=== PATIENT | female | born 1995 | race Hispanic/Latino ===

== ENCOUNTER 2017-12-08 22:54 | Inpatient (IN) | payer MEDICAID ==
[~2017-12-08] VITALS: Ht 152.4 cm; Wt 65.8 kg
[2017-12-08] MEDS ORDERED: EPHEDRINE SULFATE 50 MG/ML AMPULE IVP PRN (23:15)
[2017-12-08] MEDS ORDERED: PROMETHAZINE HCL 25 MG/ML 1ML AMPULE IM PRN (23:15)
[2017-12-08] MEDS ORDERED: MEPERIDINE-PF 50 MG/ML SYG SQ PRN (23:15)
[2017-12-08] MEDS ORDERED: LACTATED RINGERS 500 ML 500 ML IV PRN (23:15)
[2017-12-08] MEDS ORDERED: NALOXONE HCL 0.4 MG/1 ML ML IV PRN (23:15)
[2017-12-08 23:31] LABS: APPEARANCE,URINE Clear (CLEAR); BILIRUBIN,URINE Negative (NEGATIVE); COLOR,URINE Yellow (YELLOW); GLUCOSE, URINE (UA) Negative (NEGATIVE); KETONES,URINE Negative (NEGATIVE); LEUKOCYTE ESTERASE ,URINE Small (NEGATIVE); NITRATE,URINE Negative (NEGATIVE); OCCULT BLOOD,URINE Negative (NEGATIVE); PROTEIN,URINE Negative (NEGATIVE)
[2017-12-08] MEDS: LACTATED RINGERS 1000ML 1,000 ML IV PRN (23:34)
[2017-12-08 23:41] LABS: HEMATOCRIT 29.3 % (36-48); MEAN CORPUSCULAR HEMOGLOBIN 24.3 pg (27.0-33.0); MEAN CORPUSCULAR HGB CONC 32.4 g/dL (32.0-36.0); MEAN CORPUSCULAR VOLUME 74.9 fL (80-100); NUCLEATED RED BLOOD CELLS 0.1 % (0.0-0.19); PLATELET COUNT (AUTO) 304 K/uL (130-400); RED BLOOD CELL COUNT(AUTO) 3.92 MIL/uL (4.00-5.50); RED CELL DISTRIBUTION WIDTH 16.7 % (11.0-15.5); WHITE BLOOD COUNT (AUTO) 7.9 K/uL (4.8-10.8)
[2017-12-08 23:44] LABS: BACTERIA,URINE Rare /HPF (None Seen); RBC,URINE 0-1 /HPF (0-1); SQUAMOUS EPITHELIAL CELL,UR Moderate /LPF (0-2)
[2017-12-09] MEDS ORDERED: OXYTOCIN 10 USP UNITS/ML ONE ×2 (03:58→10:16)
[2017-12-09] MEDS ORDERED: OXYTOCIN 10 USP UNITS/ML 20 UNIT in LACTATED RINGERS 1000ML 1,000 ML IV SCH (04:00)
[2017-12-09] MEDS: LACTATED RINGERS 1000ML 1,000 ML IV PRN (06:51)
[2017-12-09] MEDS ORDERED: LIDOCAINE HCL 1% 20 ML VIAL ONE (09:52)
[2017-12-09] MEDS ORDERED: MISOPROSTOL 200 MCG TABLET ONE (10:05)
[2017-12-09] MEDS ORDERED: LANOLIN 30GM OINTMENT TP PRN (10:30)
[2017-12-09] MEDS ORDERED: BENZOCAINE/LANOLIN/ALOE VERA 60 ML AEROSOL TP PRN (10:30)
[2017-12-09] MEDS ORDERED: WITCH HAZEL 1 PAD TP PRN (10:30)
[2017-12-09] MEDS ORDERED: ACETAMINOPHEN 325 MG TAB PO PRN (10:30)
[2017-12-09] MEDS ORDERED: MEASLES/MUMPS/RUBELLA VACCINE, LIVE 0.5 ML/VIAL SQ PRN (10:30)
[2017-12-09] MEDS ORDERED: ACETAMINOPHEN-CODEINE 300/30MG TAB PO PRN (10:30)
[2017-12-09] MEDS ORDERED: DIPH,PERTUSS(ACELL),TET VAC/PF 0.5 ML VIAL IM PRN (10:30)
[2017-12-09] MEDS ORDERED: OXYTOCIN-LR 20 UNITS/1000 ML 1,000 ML IV SCH (10:30)
[2017-12-09] MEDS: IBUPROFEN 800 MG TAB PO PRN ×2 (10:35→21:42)
[2017-12-09 12:50] VITALS: BP 135/85
[2017-12-09 15:28] VITALS: BP 128/89
[2017-12-09 20:40] VITALS: BP 121/64
[2017-12-09] MEDS: DOCUSATE SODIUM 100 MG CAP PO SCH (21:41)
[2017-12-09] MEDS ORDERED: FLU VACC QS2017-18 36MOS UP/PF 60 MCG/0.5 ML ML IM ONE (22:00)
[2017-12-09 23:35] VITALS: BP 123/77
[2017-12-10 03:30] VITALS: BP 127/74
[2017-12-10 06:36] LABS: HEMATOCRIT 24.1 % (36-48); MEAN CORPUSCULAR HEMOGLOBIN 24.1 pg (27.0-33.0); MEAN CORPUSCULAR HGB CONC 32.2 g/dL (32.0-36.0); NUCLEATED RED BLOOD CELLS 0.1 % (0.0-0.19); PLATELET COUNT (AUTO) 274 K/uL (130-400); RED BLOOD CELL COUNT(AUTO) 3.21 MIL/uL (4.00-5.50); RED CELL DISTRIBUTION WIDTH 16.9 % (11.0-15.5); WHITE BLOOD COUNT (AUTO) 11.7 K/uL (4.8-10.8)
[2017-12-10] MEDS ORDERED: FLU VACC QS2017-18 36MOS UP/PF 60 MCG/0.5 ML ML IM SCH (07:00)
[2017-12-10 08:05] VITALS: BP 138/80
[2017-12-10 08:19] LABS: HEPATITIS Bs ANTIGEN SCREEN P Negative (Negative)
[2017-12-10] MEDS: DOCUSATE SODIUM 100 MG CAP PO SCH (10:37)
[2017-12-10 11:35] VITALS: BP 129/79
== END 2017-12-10 12:30 | disposition home or self-care (01) | DRG 560 ==
LOC: LDH 22:54 → WSH 12-09 12:49
PROVIDERS: ADMIT Obstetrics & Gynecology; ATTEND Obstetrics & Gynecology
PROC: 10E0XZZ Delivery of Products of Conception, External Approach (ICD-10-PCS; principal; 2017-12-09)
PROC: 10907ZC Drainage of Amniotic Fluid, Therapeutic from Products of Conception, Via Natural or Artificial Opening (ICD-10-PCS; 2017-12-09)
PROC: 3E033VJ Introduction of Other Hormone into Peripheral Vein, Percutaneous Approach (ICD-10-PCS; 2017-12-09)
DX: O26.62 Liver and biliary tract disorders in childbirth (principal); K83.1 Obstruction of bile duct; Z37.0 Single live birth; Z3A.37 37 weeks gestation of pregnancy; Z23 Encounter for immunization; O69.81X0 Labor and delivery complicated by cord around neck, without compression, not applicable or unspecified; O98.52 Other viral diseases complicating childbirth; B00.9 Herpesviral infection, unspecified
CPT/HCPCS: 36415; 81001; 85027; 86592; 86850; 86900; 86901; 87340; 90715; A4314; A4351; J2175; J2550; J2590; J7120; Q2038

== ENCOUNTER 2022-10-13 10:25 | Inpatient (IN) | payer BC, MEDICAID ==
[~2022-10-13] VITALS: Ht 152.4 cm; Wt 77.1 kg
[2022-10-13] MEDS ORDERED: OXYTOCIN-LR 20 UNITS/1000 ML 1,000 ML IV SCH ×3 (11:00→16:00)
[2022-10-13] MEDS ORDERED: AMPICILLIN 2GM+NS 100ML 100 ML IV SCH (11:00)
[2022-10-13] MEDS ORDERED: AMPICILLIN 1GM+NS 50ML 50 ML IV SCH (11:00)
[2022-10-13] MEDS ORDERED: ROPIVACAINE 0.2% 100ML VIAL 100 ML EP SCH (11:00)
[2022-10-13] MEDS ORDERED: LACTATED RINGERS 1000ML 1,000 ML IV PRN (11:00)
[2022-10-13] MEDS ORDERED: PROMETHAZINE HCL 25 MG/ML 1ML AMPULE IM PRN (11:00)
[2022-10-13] MEDS ORDERED: MEPERIDINE-PF 50 MG/ML SYG IVP PRN (11:00)
[2022-10-13 11:49] LABS: HEMATOCRIT 33.3 % (36-48); MEAN CORPUSCULAR HGB CONC 32.4 g/dL (32.0-36.0); MEAN CORPUSCULAR VOLUME 86.3 fL (79-99); RED BLOOD CELL COUNT(AUTO) 3.86 MIL/uL (4.00-5.50); RED CELL DISTRIBUTION WIDTH 13.6 % (11.0-15.5)
[2022-10-13 11:51] LABS: APPEARANCE,URINE CLEAR (CLEAR); BILIRUBIN,URINE NEGATIVE (NEGATIVE); COLOR,URINE LIGHT-YELLOW (YELLOW); GLUCOSE, URINE (UA) NEGATIVE (NEGATIVE); KETONES,URINE NEGATIVE (NEGATIVE); LEUKOCYTE ESTERASE ,URINE 75 Leu/uL (NEGATIVE); NITRATE,URINE NEGATIVE (NEGATIVE); OCCULT BLOOD,URINE NEGATIVE (NEGATIVE); PROTEIN,URINE NEGATIVE (NEGATIVE); UROBILINOGEN,URINE 0.2 mg/dL (0.2-1.0)
[2022-10-13 11:57] LABS: BACTERIA,URINE RARE /HPF (None Seen); MUCUS,URINE RARE LPF (None Seen); SQUAMOUS EPITHELIAL CELL,UR FEW /HPF (0-2)
[2022-10-13] MEDS ORDERED: WITCH HAZEL 1 PAD TP PRN (16:00)
[2022-10-13] MEDS ORDERED: ACETAMINOPHEN WITH CODEINE 1 TAB TAB PO PRN (16:00)
[2022-10-13] MEDS ORDERED: MEASLES/MUMPS/RUBELLA VACCINE, LIVE 0.5 ML/VIAL SQ PRN (16:00)
[2022-10-13] MEDS ORDERED: BENZOCAINE/LANOLIN/ALOE VERA 60 ML AEROSOL TP PRN (16:00)
[2022-10-13] MEDS ORDERED: ACETAMINOPHEN 325 MG TAB PO PRN (16:00)
[2022-10-13] MEDS ORDERED: LANOLIN 30GM OINTMENT TP PRN (16:00)
[2022-10-13] MEDS ORDERED: DIPH,PERTUSS(ACELL),TET VAC/PF 0.5 ML VIAL IM PRN (16:00)
[2022-10-13] MEDS: IBUPROFEN 600 MG TABLET PO PRN (16:50)
[2022-10-13 17:13] VITALS: BP 138/79
[2022-10-13] MEDS ORDERED: PREN-154 PO (17:42)
[2022-10-13 19:28] VITALS: BP 128/76
[2022-10-13] MEDS: DOCUSATE SODIUM 100 MG CAP PO SCH (21:16)
[2022-10-13 23:35] VITALS: BP 123/79
[2022-10-14 03:33] VITALS: BP 116/75
[2022-10-14 06:27] LABS: HEMATOCRIT 28.8 % (36-48); MEAN CORPUSCULAR HEMOGLOBIN 27.8 pg (27.0-33.0); MEAN CORPUSCULAR HGB CONC 32.3 g/dL (32.0-36.0); RED BLOOD CELL COUNT(AUTO) 3.35 MIL/uL (4.00-5.50); RED CELL DISTRIBUTION WIDTH 13.5 % (11.0-15.5)
[2022-10-14] MEDS: IBUPROFEN 600 MG TABLET PO PRN ×2 (07:38→14:51)
[2022-10-14 07:45] VITALS: BP 117/75
[2022-10-14] MEDS: DOCUSATE SODIUM 100 MG CAP PO SCH (08:55)
[2022-10-14 11:03] VITALS: BP 100/61
== END 2022-10-14 16:30 | disposition home or self-care (01) | DRG 807 ==
LOC: LDH 10:25 → WSH 17:05
PROVIDERS: ADMIT Obstetrics & Gynecology; ATTEND Obstetrics & Gynecology
PROC: 10907ZC Drainage of Amniotic Fluid, Therapeutic from Products of Conception, Via Natural or Artificial Opening (ICD-10-PCS; principal; 2022-10-13)
PROC: 10E0XZZ Delivery of Products of Conception, External Approach (ICD-10-PCS; 2022-10-13)
DX: O99.824 Streptococcus B carrier state complicating childbirth (principal); Z37.0 Single live birth; Z3A.37 37 weeks gestation of pregnancy
CPT/HCPCS: 36415; 81001; 85027; 86592; 86850; 86900; 86901; 87088; 87340; A4351; G0378; J0290; J2175; J2550; J2590; J7120

== ENCOUNTER 2022-11-14 10:39 | Emergency (ER) | payer BC, MEDICAID ==
[~2022-11-14] VITALS: Ht 154.9 cm; Wt 68.5 kg
[~2022-11-14 10:39] MED LIST: PREN-154 PO
[2022-11-14] MEDS ORDERED: ONDANSETRON 4MG INJ IVP ONE (11:00)
[2022-11-14] MEDS ORDERED: PANTOPRAZOLE 40 MG/VIAL IVP ONE (11:00)
[2022-11-14] MEDS ORDERED: LACTATED RINGERS 1000ML 1,000 ML IV ONE (11:00)
[2022-11-14 11:11] LABS: BASOPHILS % (AUTO) 0.7 % (0.0-5.0); EOSINOPHILS % (AUTO) 2.2 % (0.0-8.0); HEMATOCRIT 40.9 % (36-48); LYMPHOCYTES % (AUTO) 41.4 % (21.0-51.0); MEAN CORPUSCULAR HEMOGLOBIN 26.7 pg (27.0-33.0); MEAN CORPUSCULAR HGB CONC 32.5 g/dL (32.0-36.0); MEAN CORPUSCULAR VOLUME 82.1 fL (79-99); MONOCYTES % (AUTO) 5.8 % (3.0-13.0); NEUTROPHILS % (AUTO) 49.6 % (40.0-77.0); PLATELET COUNT (AUTO) 248 K/uL (130-400); RED BLOOD CELL COUNT(AUTO) 4.98 MIL/uL (4.00-5.50); RED CELL DISTRIBUTION WIDTH 14.2 % (11.0-15.5); WHITE BLOOD COUNT (AUTO) 7.6 K/uL (4.8-10.8)
[2022-11-14 11:18] LABS: APPEARANCE,URINE CLEAR (CLEAR); BILIRUBIN,URINE NEGATIVE (NEGATIVE); COLOR,URINE YELLOW (YELLOW); GLUCOSE, URINE (UA) NEGATIVE (NEGATIVE); KETONES,URINE NEGATIVE (NEGATIVE); LEUKOCYTE ESTERASE ,URINE 500 Leu/uL (NEGATIVE); NITRATE,URINE NEGATIVE (NEGATIVE); OCCULT BLOOD,URINE NEGATIVE (NEGATIVE); PH,URINE 6.5 (5.0-8.0); PROTEIN,URINE 20 mg/dL (NEGATIVE); UROBILINOGEN,URINE 3 mg/dL (0.2-1.0)
[2022-11-14 11:19] LABS: CREATININE 0.9 mg/dL (0.5-1.5); POTASSIUM 3.3 mmol/L (3.5-5.1)
[2022-11-14 11:23] LABS: HCG,QUALITATIVE URINE NEGATIVE (NEGATIVE)
[2022-11-14 11:24] LABS: TOTAL PROTEIN, SERUM 7.8 g/dL (6.0-8.3)
[2022-11-14 11:27] LABS: AMPHET/METH SCREEN,URINE NEGATIVE (NEGATIVE); BARBITURATE SCREEN, URINE NEGATIVE (NEGATIVE); BENZODIAZEPINES SCREEN,URINE NEGATIVE (NEGATIVE); CANNABINOID SCREEN,URINE NEGATIVE (NEGATIVE); COCAINE SCREEN,URINE NEGATIVE (NEGATIVE); OPIATE SCREEN,URINE NEGATIVE (NEGATIVE); PHENCYCLIDINE SCREEN,URINE NEGATIVE (NEGATIVE)
[2022-11-14 11:32] LABS: BACTERIA,URINE FEW /HPF (None Seen); MUCUS,URINE RARE LPF (None Seen); SQUAMOUS EPITHELIAL CELL,UR RARE /HPF (0-2)
[2022-11-14] MEDS ORDERED: LIDOCAINE HCL 2% VISCOUS 15 ML UDCUP PO ONE (13:00)
[2022-11-14] MEDS ORDERED: MAG/ALUM/SIMETH 30 ML UDCUP PO ONE (13:00)
[2022-11-14] MEDS ORDERED: IOHEXOL 350 MG/ML 100ML INFUS..BTL IV ONE (14:15)
[2022-11-14] MEDS ORDERED: PANT40TA55 PO (15:43)
[2022-11-14 16:10] VITALS: BP 120/68
== END 2022-11-14 16:37 | disposition home or self-care (01) ==
LOC: EDH 10:39
DX: K29.70 Gastritis, unspecified, without bleeding (principal)
CPT/HCPCS: 99284; 74177; 96374; 96361; 96375; 82550; 80053; 80305; 83690; 85025; 87088; 81025; 36415; 81001; J7120; J2405; C9113; Q9967

== ENCOUNTER 2022-12-02 13:33 | Emergency (ER) | payer BC, MEDICAID ==
[~2022-12-02] VITALS: Ht 152.4 cm; Wt 66.7 kg
[~2022-12-02 13:33] MED LIST changes: +PANT40TA55 PO
[2022-12-02] MEDS ORDERED: ONDANSETRON 4MG INJ IVP ONE (14:00)
[2022-12-02] MEDS ORDERED: MORPHINE 4 MG SYG IVP ONE (14:00)
[2022-12-02] MEDS ORDERED: 0.9%NACL 1000ML 1,000 ML IV ONE (14:00)
[2022-12-02 14:02] LABS: BASOPHILS % (AUTO) 0.4 % (0.0-5.0); EOSINOPHILS % (AUTO) 2.4 % (0.0-8.0); HEMATOCRIT 40.7 % (36-48); LYMPHOCYTES % (AUTO) 44.7 % (21.0-51.0); MEAN CORPUSCULAR HEMOGLOBIN 26.7 pg (27.0-33.0); MEAN CORPUSCULAR HGB CONC 33.7 g/dL (32.0-36.0); MEAN CORPUSCULAR VOLUME 79.3 fL (79-99); MONOCYTES % (AUTO) 5.2 % (3.0-13.0); PLATELET COUNT (AUTO) 342 K/uL (130-400); RED BLOOD CELL COUNT(AUTO) 5.13 MIL/uL (4.00-5.50); RED CELL DISTRIBUTION WIDTH 14.6 % (11.0-15.5); WHITE BLOOD COUNT (AUTO) 9.4 K/uL (4.8-10.8)
[2022-12-02 14:16] LABS: CREATININE 0.8 mg/dL (0.5-1.5); POTASSIUM 3.5 mmol/L (3.5-5.1); TOTAL PROTEIN, SERUM 8.3 g/dL (6.0-8.3)
[2022-12-02 14:55] VITALS: BP 122/70
[2022-12-02 15:04] LABS: APPEARANCE,URINE CLEAR (CLEAR); BILIRUBIN,URINE NEGATIVE (NEGATIVE); COLOR,URINE LIGHT-YELLOW (YELLOW); GLUCOSE, URINE (UA) NEGATIVE (NEGATIVE); KETONES,URINE NEGATIVE (NEGATIVE); LEUKOCYTE ESTERASE ,URINE 500 Leu/uL (NEGATIVE); NITRATE,URINE NEGATIVE (NEGATIVE); OCCULT BLOOD,URINE NEGATIVE (NEGATIVE); PH,URINE 6.5 (5.0-8.0); PROTEIN,URINE NEGATIVE (NEGATIVE); UROBILINOGEN,URINE 0.2 mg/dL (0.2-1.0)
[2022-12-02 15:05] LABS: HCG,QUALITATIVE URINE NEGATIVE (NEGATIVE)
[2022-12-02 15:18] LABS: BACTERIA,URINE FEW /HPF (None Seen); SQUAMOUS EPITHELIAL CELL,UR RARE /HPF (0-2); WBC,URINE 26-50 /HPF (0-1)
[2022-12-02] MEDS ORDERED: CEPH500B PO (15:38)
== END 2022-12-02 15:56 | disposition home or self-care (01) ==
LOC: EDH 13:33
DX: K80.20 Calculus of gallbladder without cholecystitis without obstruction (principal); N39.0 Urinary tract infection, site not specified; R10.11 Right upper quadrant pain; R11.0 Nausea; Z79.899 Other long term (current) drug therapy
CPT/HCPCS: 99284; 96374; 76705; 96361; 96375; 82150; 80053; 83690; 85025; 87088; 83605; 81001; 81025; 36415; J7030; J2405; J2270

== ENCOUNTER 2023-11-05 17:09 | Emergency (ER) | payer BC ==
[~2023-11-05] VITALS: Ht 152.4 cm; Wt 65.8 kg
[2023-11-05 17:35] LABS: APPEARANCE,URINE CLOUDY (CLEAR); BILIRUBIN,URINE NEGATIVE (NEGATIVE); COLOR,URINE YELLOW (YELLOW); GLUCOSE, URINE (UA) NEGATIVE (NEGATIVE); KETONES,URINE NEGATIVE (NEGATIVE); LEUKOCYTE ESTERASE ,URINE 250 Leu/uL (NEGATIVE); NITRATE,URINE NEGATIVE (NEGATIVE); OCCULT BLOOD,URINE NEGATIVE (NEGATIVE); PROTEIN,URINE 70 mg/dL (NEGATIVE); UROBILINOGEN,URINE 3 mg/dL (0.2-1.0)
[2023-11-05 17:39] LABS: ADD UA MICROSCOPIC YES
[2023-11-05 17:44] LABS: HCG,QUALITATIVE URINE NEGATIVE (NEGATIVE)
[2023-11-05 18:24] LABS: BACTERIA,URINE FEW /HPF (None Seen); MUCUS,URINE RARE LPF (None Seen); RENAL EPITHELIAL CELLS,URINE FEW /HPF (None Seen); SQUAMOUS EPITHELIAL CELL,UR FEW /HPF (0-2); UNCLASSIFIED CRYSTAL 6 /HPF (None Seen); WBC CLUMP FEW /HPF (0-1); WBC,URINE TNTC /HPF (0-1); YEAST,URINE BUDDING MOD /HPF (None Seen)
[2023-11-05] MEDS ORDERED: SULF1TAB42 PO (18:39)
[2023-11-05] MEDS ORDERED: ONDA4TAB10 PO (18:40)
[2023-11-05 18:53] VITALS: BP 121/71; PULSE 79; RESP 18; O2SAT 98
== END 2023-11-05 18:56 | disposition home or self-care (01) ==
LOC: EDH 17:09
DX: N39.0 Urinary tract infection, site not specified (principal); Z90.49 Acquired absence of other specified parts of digestive tract; Z98.890 Other specified postprocedural states
CPT/HCPCS: 81001; 81025; 87077; 87088; 87186